=== PATIENT | male | born 1960 | race African-American/Black ===

== ENCOUNTER 2021-12-26 14:45 | Emergency (ER) | payer OTHER ==
[~2021-12-26] VITALS: Ht 175.3 cm; Wt 82.0 kg
[2021-12-26] MEDS ORDERED: HYDROCODONE/ACETAMINOPHEN 5/325MG TABLET PO ONE (16:00)
[2021-12-26] MEDS ORDERED: METHOCARBAMOL 500MG TABLET PO ONE (16:00)
[2021-12-26] MEDS ORDERED: LIDOCAINE 5% PATCH TOP SCH (16:00)
[2021-12-26 16:35] VITALS: BP 122/62
[2021-12-26] MEDS ORDERED: METH-773 MT (17:11)
[2021-12-26] MEDS ORDERED: LIDO1ADH5 TP (17:11)
[2021-12-26] MEDS ORDERED: ACET-2708 MT (17:11)
== END 2021-12-26 17:37 | disposition home or self-care (01) ==
LOC: ER 14:45
DX: S39.012A Strain of muscle, fascia and tendon of lower back, initial encounter (principal); X50.9XXA Other and unspecified overexertion or strenuous movements or postures, initial encounter; Y93.89 Activity, other specified; Y92.89 Other specified places as the place of occurrence of the external cause; E11.9 Type 2 diabetes mellitus without complications; I25.10 Atherosclerotic heart disease of native coronary artery without angina pectoris; I25.2 Old myocardial infarction; Z95.1 Presence of aortocoronary bypass graft
CPT/HCPCS: 82962; 99284

== ENCOUNTER 2022-03-28 19:45 | Emergency (ER) | payer MEDICAID, OTHER ==
[~2022-03-28] VITALS: Ht 175.3 cm; Wt 82.8 kg
[~2022-03-28 19:45] MED LIST: ACET-2708 MT; LIDO1ADH5 TP; METH-773 MT
[2022-03-28 20:34] VITALS: BP 117/66
[2022-03-29] MEDS ORDERED: NITROGLYCERIN 0.4MG TABLET SL SL PRN (00:30)
[2022-03-29] MEDS ORDERED: ASPIRIN 81MG TABLET PO ONE (00:30)
== END 2022-03-29 09:50 | disposition left against medical advice (07) ==
LOC: ER 19:45
DX: Z53.21 Procedure and treatment not carried out due to patient leaving prior to being seen by health care provider (principal); R07.89 Other chest pain; E11.9 Type 2 diabetes mellitus without complications
CPT/HCPCS: 82962; 93005

== ENCOUNTER 2022-06-15 18:29 | Emergency (ER) | payer MEDICARE, OTHER ==
[~2022-06-15] VITALS: Ht 175.3 cm; Wt 78.0 kg
[2022-06-15 18:35] VITALS: BP 118/77
== END 2022-06-15 22:03 | disposition left against medical advice (07) ==
LOC: ER 18:46
DX: Z53.21 Procedure and treatment not carried out due to patient leaving prior to being seen by health care provider (principal)
CPT/HCPCS: 93005

== ENCOUNTER → 2022-08-22 | Outpatient (CLI) | payer MEDICARE, OTHER | END | disposition home or self-care (01) | LOC: MRI 13:09 | PROVIDERS: ATTEND Neurological Surgery | DX: M48.02 Spinal stenosis, cervical region (principal); M54.50 Low back pain, unspecified | CPT/HCPCS: 72141; 72146; 72148 ==

== ENCOUNTER → 2022-09-11 | Outpatient (CLI) | payer MEDICARE, OTHER | END | disposition home or self-care (01) | LOC: MRI 10:29 | PROVIDERS: ATTEND Neurological Surgery | DX: G31.9 Degenerative disease of nervous system, unspecified (principal); R90.82 White matter disease, unspecified; I67.82 Cerebral ischemia | CPT/HCPCS: 70551 ==

== ENCOUNTER 2022-10-27 07:19 | Inpatient (IN) | payer MEDICARE, MEDICAID ==
[~2022-10-27] VITALS: Ht 172.7 cm; Wt 86.2 kg
[2022-10-27] VITALS (24 sets, daily range): BP systolic 89–157; BP diastolic 48–97
[2022-10-27] MEDS ORDERED: BACITRACIN 15GM TUBE TOP ONE (07:24)
[2022-10-27] MEDS ORDERED: THROMBIN (BOVINE) 5000 UNITS/VIAL TOP ONE (07:24)
[2022-10-27] MEDS ORDERED: SKIN ADHESIVE 0.7 GM EA TOP ONE (07:24)
[2022-10-27] MEDS ORDERED: LIDOCAINE HCL 1%/EPI 1:200,000 30 ML VIAL ONE (07:24)
[2022-10-27] MEDS ORDERED: GENTAMICIN SULF 40MG/ML 2ML VIAL ONE (07:24)
[2022-10-27 08:20] LABS: CHLORIDE 102 mEq/L (98-107)
[2022-10-27] MEDS ORDERED: SODIUM CHLORIDE 0.9% 1,000 ML IV SCH ×2 (09:00→12:00)
[2022-10-27] MEDS ORDERED: ROCURONIUM BROMIDE 10MG/ML VIAL 5ML IV ONE ×2 (09:44→10:45)
[2022-10-27] MEDS ORDERED: LIDOCAINE HCL 1% 10 MG/ML 10ML VIAL ONE (09:44)
[2022-10-27] MEDS ORDERED: PROPOFOL 200MG/20ML VIAL IV ONE (09:44)
[2022-10-27] MEDS ORDERED: FENTANYL CITRATE/PF 50MCG/ML 2ML VIAL ONE (09:44)
[2022-10-27] MEDS ORDERED: MIDAZOLAM HCL 2 MG/2 ML VIAL ONE (09:45)
[2022-10-27] MEDS ORDERED: EPHEDRINE SULFATE 50MG/ML VIAL ONE (10:46)
[2022-10-27] MEDS ORDERED: METF-416 PO (11:16)
[2022-10-27] MEDS ORDERED: FURO-152 PO (11:16)
[2022-10-27] MEDS ORDERED: INSU100I24 SQ (11:16)
[2022-10-27] MEDS ORDERED: ASPI-1497 PO (11:16)
[2022-10-27] MEDS ORDERED: CYAN-50 PO (11:16)
[2022-10-27] MEDS ORDERED: BISO5TAB13 PO (11:16)
[2022-10-27] MEDS ORDERED: SEMA2PEN SUBCUT (11:16)
[2022-10-27] MEDS ORDERED: GABA-290 PO (11:16)
[2022-10-27] MEDS ORDERED: EMPA25TA PO (11:16)
[2022-10-27] MEDS ORDERED: ROSU40TA PO (11:16)
[2022-10-27] MEDS ORDERED: METOCLOPRAMIDE HCL 10MG/2ML VIAL ONE (11:32)
[2022-10-27] MEDS ORDERED: DEXAMETHASONE 4MG/ML 1ML VIAL ONE (11:32)
[2022-10-27] MEDS ORDERED: ONDANSETRON HCL 4MG/2ML INJ ONE (11:32)
[2022-10-27] MEDS ORDERED: NEOSTIGMINE METHYLSULFATE 1MG/ML 10 ML VIAL ONE (11:44)
[2022-10-27] MEDS ORDERED: GLYCOPYRROLATE 0.2 MG/ML 2ML VIAL ONE (11:45)
[2022-10-27] MEDS ORDERED: KETOROLAC 30MG/ML VIAL ONE (11:47)
[2022-10-27] MEDS ORDERED: ONDANSETRON HCL 4MG/2ML INJ IV PRN (12:00)
[2022-10-27] MEDS: DEXT 5%/LACTATED RINGERS 1,000 ML IV SCH ×2 (12:30→18:25)
[2022-10-27] MEDS ORDERED: NICARDIPINE 100 MG in SODIUM CHLORIDE 0.9% 60 ML IV PRN (12:30)
[2022-10-27] MEDS ORDERED: LABETALOL HCL 5MG/ML VIAL 20ML IV ONE (12:35)
[2022-10-27] MEDS ORDERED: NALOXONE HCL 0.4MG/ML VIAL IV PRN (12:45)
[2022-10-27] MEDS ORDERED: HYDRALAZINE 20MG/ML VIAL ONE (13:03)
[2022-10-27] MEDS ORDERED: NALOXONE INJ IV PRN (13:30)
[2022-10-27] MEDS ORDERED: HYDROMORPHONE PCA 10MG/50ML IV PRN (13:30)
[2022-10-27] MEDS ORDERED: DIPHENHYDRAMINE INJ IV PRN (13:30)
[2022-10-27] MEDS ORDERED: ONDANSETRON INJ IV PRN (13:30)
[2022-10-27] MEDS ORDERED: NALOXONE HCL 0.4 MG/ML 1ML VIAL ONE (13:37)
[2022-10-27] MEDS ORDERED: SODIUM CHLORIDE 0.9% 500 ML IV ONE (15:15)
[2022-10-27] MEDS ORDERED: DEXTROSE 50% WATER 50ML SYRINGE IV PRN (16:00)
[2022-10-27] MEDS: HYDROMORPHONE HCL/PF 2MG/ML CPJ IV PRN ×4 (16:22→18:05)
[2022-10-27] MEDS: BLOOD SUGAR DIAGNOSTIC STRIP TEST SCH ×2 (17:00→20:55)
[2022-10-27] MEDS ORDERED: CEFAZOLIN SODIUM 1000MG/VIAL IV SCH (18:00)
[2022-10-27] MEDS: DEXAMETHASONE 4MG/ML 1ML VIAL IV SCH (18:24)
[2022-10-27] MEDS: INSULIN LISPRO 100 UNITS/ML SUBCUT SCH ×2 (18:25→21:01)
[2022-10-27] MEDS: CEFAZOLIN 1000MG PREMIX 50 ML IV SCH (21:01)
[2022-10-28] VITALS (58 sets, daily range): BP systolic 83–173; BP diastolic 37–107
[2022-10-28] MEDS: DEXAMETHASONE 4MG/ML 1ML VIAL IV SCH ×4 (00:39→18:26)
[2022-10-28 05:21] LABS: CHLORIDE 103 mEq/L (98-107)
[2022-10-28] MEDS: CEFAZOLIN 1000MG PREMIX 50 ML IV SCH ×2 (05:23→13:00)
[2022-10-28] MEDS: DEXT 5%/LACTATED RINGERS 1,000 ML IV SCH ×2 (05:24→18:27)
[2022-10-28 05:28] LABS: HDL CHOLESTEROL 42 mg/dL (40-59); LDL CHOLESTEROL 60 mg/dL (5-100)
[2022-10-28 06:18] LABS: HEMATOCRIT. 35.8 % (42.0-52.0); HEMOGLOBIN. 11.3 g/dL (14.0-18.0); MEAN CORPUSCULAR HEMOGLOBIN 27.8 pg (28.0-32.0); MEAN CORPUSCULAR VOLUME 88.5 fL (80.0-94.0); MEAN PLATELET VOLUME 10.3 fl (7.4-10.4); PLATELET 154 x1000/uL (130-400); RED BLOOD CELL COUNT 4.05 mill/uL (4.7-6.1); RED CELL DISTRIBUTION WIDTH 15.5 % (11.6-14.6)
[2022-10-28] MEDS: BLOOD SUGAR DIAGNOSTIC STRIP TEST SCH ×4 (06:20→21:00)
[2022-10-28] MEDS: INSULIN LISPRO 100 UNITS/ML SUBCUT SCH ×4 (06:28→22:17)
[2022-10-28] MEDS ORDERED: AMLODIPINE 5MG TABLET PO SCH (09:00)
[2022-10-28 10:56] LABS: PLATELET ESTIMATE NORMAL
[2022-10-28] MEDS: CLONIDINE 0.1MG TABLET PO SCH ×3 (12:00→22:00)
[2022-10-28] MEDS: AMLODIPINE 5MG TABLET PO SCH (20:53)
[2022-10-29] VITALS (26 sets, daily range): BP systolic 114–160; BP diastolic 64–94
[2022-10-29] MEDS: DEXT 5%/LACTATED RINGERS 1,000 ML IV SCH ×2 (04:30→13:43)
[2022-10-29 05:40] LABS: HEMATOCRIT 34.2 % (42.0-52.0); MEAN CORPUSCULAR HEMOGLOBIN 28.5 pg (28.0-32.0); MEAN CORPUSCULAR VOLUME 88.9 fL (80.0-94.0); PLATELET 143 x1000/uL (130-400); RED BLOOD CELL COUNT 3.85 mill/uL (4.7-6.1); RED CELL DISTRIBUTION WIDTH 15.3 % (11.6-14.6)
[2022-10-29 06:06] LABS: CHLORIDE 104 mEq/L (98-107)
[2022-10-29] MEDS: CLONIDINE 0.1MG TABLET PO SCH ×3 (06:25→22:18)
[2022-10-29] MEDS: BLOOD SUGAR DIAGNOSTIC STRIP TEST SCH ×4 (06:58→21:00)
[2022-10-29] MEDS: INSULIN LISPRO 100 UNITS/ML SUBCUT SCH ×4 (07:15→22:20)
[2022-10-29] MEDS: AMLODIPINE 5MG TABLET PO SCH ×2 (08:44→22:18)
[2022-10-29] MEDS ORDERED: HYDROCODONE/ACETAMINOPHEN 5/325MG TABLET PO PRN (08:45)
[2022-10-29] MEDS: MORPHINE SULFATE 4 MG/ML CPJ (NOT FOR IM USE) IV PRN ×2 (10:37→13:45)
[2022-10-30] VITALS: BP 128/83
[2022-10-30] MEDS: DEXT 5%/LACTATED RINGERS 1,000 ML IV SCH (00:40)
[2022-10-30 04:00] VITALS: BP 145/75
[2022-10-30] MEDS: CLONIDINE 0.1MG TABLET PO SCH (06:39)
[2022-10-30] MEDS: BLOOD SUGAR DIAGNOSTIC STRIP TEST SCH (06:39)
[2022-10-30 06:43] LABS: HEMATOCRIT. 34.4 % (42.0-52.0); MEAN CORPUSCULAR HEMOGLOBIN 28.7 pg (28.0-32.0); MEAN CORPUSCULAR VOLUME 89.9 fL (80.0-94.0); MEAN PLATELET VOLUME 9.7 fl (7.4-10.4); PLATELET 131 x1000/uL (130-400); RED BLOOD CELL COUNT 3.83 mill/uL (4.7-6.1); RED CELL DISTRIBUTION WIDTH 15.5 % (11.6-14.6)
[2022-10-30 06:46] LABS: CHLORIDE 105 mEq/L (98-107)
[2022-10-30] MEDS: INSULIN LISPRO 100 UNITS/ML SUBCUT SCH (07:10)
[2022-10-30 08:00] VITALS: BP 151/80
[2022-10-30] MEDS: AMLODIPINE 5MG TABLET PO SCH (08:52)
[2022-10-30 09:07] VITALS: BP 151/80
[2022-10-30 13:06] LABS: PLATELET ESTIMATE NORMAL
== END 2022-10-30 10:00 | disposition home health service (06) | DRG 472 ==
LOC: OR 07:19 → MICUSO 19:53 → 7EST 10-29 11:11
PROVIDERS: ADMIT Neurological Surgery; ATTEND Neurological Surgery
PROC: 0RG20A0 Fusion of 2 or more Cervical Vertebral Joints with Interbody Fusion Device, Anterior Approach, Anterior Column, Open Approach (ICD-10-PCS; principal; 2022-10-27)
PROC: 0RB30ZZ Excision of Cervical Vertebral Disc, Open Approach (ICD-10-PCS; 2022-10-27)
DX: M48.02 Spinal stenosis, cervical region (principal); M47.12 Other spondylosis with myelopathy, cervical region; E11.9 Type 2 diabetes mellitus without complications; E78.5 Hyperlipidemia, unspecified; I10 Essential (primary) hypertension; I25.10 Atherosclerotic heart disease of native coronary artery without angina pectoris; M47.22 Other spondylosis with radiculopathy, cervical region; Z20.822 Contact with and (suspected) exposure to COVID-19; R29.6 Repeated falls; Z79.4 Long term (current) use of insulin; Z95.1 Presence of aortocoronary bypass graft; Z95.2 Presence of prosthetic heart valve; Z88.0 Allergy status to penicillin; Z88.2 Allergy status to sulfonamides; Z79.82 Long term (current) use of aspirin
CPT/HCPCS: 36415; 71045; 72040; 72141; 76000; 80048; 80061; 82962; 83036; 85025; 85027; 86850; 86900; 87426; 88304; 88311; 93005; 95925; 95926; 95928; 95929; C1713; C9803; J0360; J0690; J1100; J1170; J1580; J1815; J1885; J2250; J2270; J2310; J2405; J2704; J2710; J2765; J3010; J3490; J7050; J7121; L0172; C1889

== ENCOUNTER → 2023-06-09 | Outpatient (CLI) | payer MEDICARE, MEDICAID ==
[~2023-06-09] MED LIST changes: -ACET-2708 MT; +ASPI-1497 PO; +BISO5TAB13 PO; +CYAN-50 PO; +EMPA25TA PO; +FURO-152 PO; +GABA-290 PO; +INSU100I24 SQ; -LIDO1ADH5 TP; +METF-416 PO; -METH-773 MT; +ROSU40TA PO; +SEMA2PEN SUBCUT
== END | disposition home or self-care (01) ==
LOC: MRI 09:40
PROVIDERS: ATTEND Neurological Surgery
DX: M43.22 Fusion of spine, cervical region (principal); M47.812 Spondylosis without myelopathy or radiculopathy, cervical region; M25.78 Osteophyte, vertebrae; M48.02 Spinal stenosis, cervical region
CPT/HCPCS: 72141